=== PATIENT | female | born 1955 | race Two or more races ===

== ENCOUNTER 2018-07-29 15:43 | Emergency (ER) | payer OTHER ==
[~2018-07-29] VITALS: Ht 152.4 cm; Wt 46.7 kg
[2018-07-29] MEDS ORDERED: ZANTAC300 MG (16:04)
== END 2018-07-29 18:44 | disposition home or self-care (01) ==
LOC: ER 15:43
DX: S30.0XXA Contusion of lower back and pelvis, initial encounter (principal); M62.830 Muscle spasm of back; W18.39XA Other fall on same level, initial encounter; Y93.89 Activity, other specified; Y92.89 Other specified places as the place of occurrence of the external cause; Y99.8 Other external cause status